=== PATIENT | female | born 1940 | race Hispanic/Latino ===

== ENCOUNTER 2018-01-17 10:37 | Emergency (ER) | payer MEDICARE, OTHER ==
--- NOTE | 2018-01-17 12:05 | ED PDOC ---
Arrival/HPI - General Historian: Patient, Family (haley) - History of Present Illness Narrative History of Present Illness (Text): 01/17/18 12:00 77 yo F with pmhx of osteoporosis presents to the ED with her daughter with L sided pelvic bone pain. Pain began approximately 1 week ago. Pain is pressure like, 3-4/10, intermittent, worse with walking only, alleviated with rest and laying down. She has not taken any meds to try to alleviate her pain since not walking resolves her symptoms. She ambulates with a cane. Denies urinary or bowel incontinence. Last bowel movement this morning, normal. No gait disturbance. No neuro deficits of lower extremity. of note: per daughter, she had hx of fracture at the same site of pelvis 2 years ago but wasnt surgically corrected. PMD: Dr. Barnard @ [facility]: BL hip replacement 2 years ago famhx: none Soc: denies smoking, alcohol, illicit drugs Lives with daughter NKDA Time/Duration: 1 week Symptom Onset: Gradual Symptom Course: Unchanged Quality: Pressure Severity Level: 4 Activities at Onset: Other (walking) Context: Walking <Alpesh Juarezang - Last Filed: 01/17/18 12:43> <[place] - Last Filed: 01/17/18 12:54> - General Chief Complaint: Hip Pain Time Seen by Provider: 01/17/18 11:24 Past Medical History - Provider Review Nursing Documentation Reviewed: Yes - Travel History Have you recently traveled outside [place] w/in the past 3 mons?: No - Reproductive Menopause: No - Musculoskeletal/Rheumatological Hx Osteoporosis: Yes - Psychiatric Hx Substance Use: No <Chuck Juarez - Last Filed: 01/17/18 12:43> Family/Social History - Physician Review Nursing Documentation Reviewed: Yes Family/Social History: No Known Family HX Smoking Status: Never Smoked Hx Alcohol Use: No Hx Substance Use: No <Chuck Juarez - Last Filed: 01/17/18 12:43> Allergies/Home Meds <Chuck Juarez - Last Filed: 01/17/18 12:43> <[place] M - Last Filed: 01/17/18 12:54> Allergies/Adverse Reactions: Allergies No Known Allergies Allergy (Verified 01/17/18 11:47) Review of Systems - Review of Systems Respiratory: absent: SOB, Cough Cardiovascular: absent: Chest Pain Gastrointestinal: Abdominal Pain, Other (L pelvic pain). absent: Constipation, Diarrhea, Nausea Neurological: absent: Gait Changes <Alpesh Juarezdwayne Hassan Filed: 01/17/18 12:43> Physical Exam Vital Signs Reviewed: Yes Appearance: Positive for: Well-Appearing, Comfortable Mental Status: Positive for: Alert and Oriented X 3 - Systems Exam Extroacular Muscles: Present: EOMI Neck: Present: Normal Range of Motion Respiratory/Chest: Present: Clear to Auscultation, Good Air Exchange. 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) Neurological: Present: CN II-XII Intact, Speech Normal Skin: Present: Warm Psychiatric: Present: Alert, Oriented x 3, Normal Insight, Normal Concentration <Alpesh Juarezdwayne Mcgowan Filed: 01/17/18 12:43> Vital Signs Temp Pulse Resp BP Pulse Ox 01/17/18 12:11 97.1 F L 89 18 170/82 H 98 Mental Status: Positive for: Alert and Oriented X 3 - Systems Exam Respiratory/Chest: Present: Clear to Auscultation Cardiovascular: Present: Regular Rate and Rhythm <[place] Filed: 01/17/18 12:54> Medical Decision Making ED Course and Treatment: 01/17/18 12:09 77 yo F with pmhx of osteoporosis presents to the ED with her daughter with L sided pelvic bone pain. -XR pelvis 2 view 12:44 xr reviewed no acute fracture dc home to f/u with pmd in [address] Shanique Juarez MD PGY2 01/17/18 12:44 - RAD Interpretation Radiology Orders: 01/17/18 11:55 PELVIS TWO VIEWS [RAD] Stat <Alpesh Juarezdwayne Hassan Filed: 01/17/18 12:43> ED Course and Treatment: 01/17/18 12:52 No numbness, tingles, weakness, abd pain, incontinence, constipation. 01/17/18 12:54 Stable. AAOx3. Pain free at rest. Did not wants meds. - RAD Interpretation Radiology Orders: 01/17/18 11:55 PELVIS TWO VIEWS [RAD] Stat <[place] Uri - Last Filed: 01/17/18 12:54> Disposition/Present on Arrival - Present on Arrival Any Indicators Present on Arrival: No - Disposition Have Diagnosis and Disposition been Completed?: Yes Disposition Time: 12:46 Patient Plan: Discharge <Chuck Juarez - Last Filed: 01/17/18 12:43> <[place] M - Last Filed: 01/17/18 12:54> - Disposition Diagnosis: Acute pelvic pain, female Condition: GOOD Discharge Instructions (ExitCare): Acute Pelvic Pain (DC) Print Language: SURINAMESE Additional Instructions: Please follow up with pmd in 2 days. if trouble ambulating, please return to ER Forms: Velti (Luxembourgish) Attending/Attestation - Attestation I have personally seen and examined this patient.: Yes I have fully participated in the care of the patient.: Yes I have reviewed all pertinent clinical information, including history, physical exam and plan: Yes Notes (Text): 01/17/18 12:51 Agree with resident al. Pt. with pelvic bone pain on walking, mild. <[place] - Last Filed: 01/17/18 12:54>
[2018-01-17 12:25] VITALS: RESP 18; TEMP 97.1
--- NOTE | 2018-01-17 12:36 | RAD ---
Date of service: 01/17/2018 PROCEDURE: Radiographs of the pelvis. HISTORY: pain, hx fx COMPARISON: None. FINDINGS: BONES: Pelvic Bones: Unremarkable. Hips: Bilateral hip arthroplasty. No evidence of prosthesis loosening bilaterally. JOINTS: Sacroiliac Joints: Unremarkable. Pubic Symphysis: Unremarkable. OTHER FINDINGS: None. IMPRESSION: No acute fracture. Bilateral total hip replacement.
[2018-01-17 13:12] VITALS: BP 145/72; PULSE 69; O2SAT 100
== END 2018-01-17 13:12 | disposition home or self-care (01) ==
LOC: H.ER 10:37
DX: R10.2 Pelvic and perineal pain (principal)